=== PATIENT | female | born 1980 | race Caucasian/White ===

== ENCOUNTER 2017-04-29 11:48 | Emergency (ER) | payer MEDICAID ==
[2017-04-29 12:20] LABS: BASOPHILS % (AUTO) 0.2 %; EOSINOPHILS # (AUTO) 0.3 10^3/uL (0.0-0.7); EOSINOPHILS % (AUTO) 3.8 %; HGB - HEMOGLOBIN 13.6 g/dL (12.0-16.0); LYMPHOCYTES # (AUTO) 0.4 10^3/uL (1.5-3.5); LYMPHOCYTES % (AUTO) 5.1 %; MEAN CORPUSCULAR HEMOGLOBIN 28.7 pg (27.0-31.0); MEAN CORPUSCULAR HGB CONC 33.9 g/dL (32.0-36.0); MEAN CORPUSCULAR VOLUME 84.5 fL (81.0-99.0); MEAN PLATELET VOLUME 8.1 fL (7.9-10.8); MONOCYTES # (AUTO) 0.8 10^3/uL (0.0-1.0); MONOCYTES % (AUTO) 9.7 %; NEUTROPHILS # (AUTO) 6.9 10^3/uL (1.5-6.6); NEUTROPHILS % (AUTO) 81.2 %; PLT - PLATELET COUNT 206 10^3/uL (130-450); RED BLOOD COUNT 4.73 10^6/uL (4.20-5.40); RED CELL DISTRIBUTION WIDTH 14.3 % (12.0-15.0); WHITE BLOOD COUNT 8.6 x10^3/uL (4.8-10.8)
--- NOTE | 2017-04-29 12:33 | ED Physician Documentation ---
PD HPI FOCAL NEURO - Stated complaint Stated Complaint: SYNCOPE - Chief complaint Chief Complaint: Neuro - History obtained from History obtained from: Patient - History of Present Illness Timing - onset: Other (Previously healthy 36-year-old woman who has had irregular and heavy menses lately and had a recent stress fracture of a left- sided metatarsal who is in a boot now. 3 days ago, on she had an episode lasting about 5 minutes where she got in the shower and then she got very dizzy and had stomach cramps and nearly passed out. She laid down and after a few minutes felt better. Yesterday and the day before she felt fine. Today she went to work and she started to get stomach cramps and a left flank pain radiating to the left upper quadrant/chest. This was associated with tunnel vision and near syncope and diarrhea. She feels not completely better now with residual stomach cramps and nausea and slight dizziness but mostly better. She declines any medications for her symptoms. This is never happened before. She says there is no possibility of .) Review of Systems Ten Systems: 10 systems reviewed and negative Constitutional: denies: Fever, Chills Ears: denies: Ear pain Nose: denies: Rhinorrhea / runny nose, Congestion Throat: denies: Sore throat Cardiac: reports: Chest pain / pressure (For 1 month when working out). denies : Palpitations Respiratory: denies: Dyspnea, Cough GI: reports: Abdominal Pain, Nausea, Diarrhea. denies: Vomiting PD PAST MEDICAL HISTORY - Past Medical History Past Medical History: Yes Neuro: Headache/migraine Endocrine/Autoimmune: HyPOthyroidism Psych: Anxiety, Panic attacks - Past Surgical History Past Surgical History: Yes General: Cholecystectomy - Allergies Allergies/Adverse Reactions: Allergies Allergy/AdvReac Type Severity Reaction Status Date / Time No Known Drug Allergies Allergy Verified 04/29/17 12:11 - Social History Does the pt smoke?: Yes Smoking Status: Current every day smoker Does the pt drink ETOH?: No Does the pt have substance abuse?: No - Immunizations Immunizations are current?: Yes - POLST Patient has POLST: No PD ED PE NORMAL - Vitals Vital signs reviewed: Yes - General General: Alert and oriented X 3, No acute distress - HEENT HEENT: PERRL, EOMI - Neck Neck: Supple, no meningeal sign, No bony TTP - Cardiac Cardiac: RRR, No murmur - Respiratory Respiratory: No respiratory distress, Clear bilaterally - Abdomen Abdomen: Normal bowel sounds, Soft, Non tender - Back Back: No CVA TTP, No spinal TTP - Derm Derm: Normal color, Warm and dry - Extremities Extremities: Other (Left leg in a short leg boot without calf tenderness or swelling.) - Neuro Neuro: Alert and oriented X 3, Normal speech Eye Opening: Spontaneous Motor: Obeys Commands Verbal: Oriented GCS Score: 15 - Psych Psych: Normal mood, Normal affect Results - Vitals Vitals: Vital Signs - 24 hr 04/29/17 04/29/17 04/29/17 11:50 12:12 15:29 Temperature 36.4 C L Heart Rate 74 67 Heart Rate [ 85 Sitting] Heart Rate [ 74 Standing] Heart Rate [ 64 Supine] Respiratory 20 20 Rate Blood Pressure 121/71 130/68 Blood Pressure 133/82 H [Sitting] Blood Pressure 132/82 H [Standing] Blood Pressure 103/38 L [Supine] O2 Saturation 97 100 Oxygen O2 Source Room air - EKG (time done) 1156 Rate: Rate (enter#) (73) Rhythm: NSR [place]: Normal Intervals: Normal [place] QRS: Normal Ischemia: Normal ST segments Computer interpretation: Agree with computer - Labs Labs: Laboratory Tests 04/29/17 04/29/17 04/29/17 12:06 12:06 12:06 WBC 8.6 RBC 4.73 Hgb 13.6 Hct 40.0 MCV 84.5 MCH 28.7 MCHC 33.9 RDW 14.3 Plt Count 206 MPV 8.1 Neut # 6.9 H Lymph # 0.4 L [place] # 0.8 Eos # 0.3 Baso # 0.0 Absolute Nucleated RBC 0.00 Nucleated RBC % 0.0 D-Dimer 342.5 H Sodium 139 Potassium 4.0 Chloride 104 Carbon Dioxide 26 Anion Gap 9.0 BUN 18 Creatinine 0.7 Estimated GFR (MDRD) 94 Glucose 99 Calcium 8.7 Total Bilirubin 0.7 AST 40 ALT 41 Alkaline Phosphatase 46 Total Protein 6.3 L Albumin 3.8 Globulin 2.5 Albumin/Globulin Ratio 1.5 Lipase 15 L Urine Color Urine Clarity Urine pH Ur Specific [place] Urine Protein Urine Glucose (UA) Urine Ketones Urine Occult Blood Urine Nitrite Urine Bilirubin Urine Urobilinogen Ur Leukocyte Esterase Ur Microscopic Review Urine Culture Comments Urine HCG, Qual 02/25/18 13:49 WBC RBC Hgb Hct MCV MCH MCHC RDW Plt Count MPV Neut # Lymph # [place] # Eos # Baso # Absolute Nucleated RBC Nucleated RBC % D-Dimer Sodium Potassium Chloride Carbon Dioxide Anion Gap BUN Creatinine Estimated GFR (MDRD) Glucose Calcium Total Bilirubin AST ALT Alkaline Phosphatase Total Protein Albumin Globulin Albumin/Globulin Ratio Lipase Urine Color YELLOW Urine Clarity CLEAR Urine pH 7.5 Ur Specific [place] 1.015 Urine Protein NEGATIVE Urine Glucose (UA) NEGATIVE Urine Ketones NEGATIVE Urine Occult Blood NEGATIVE Urine Nitrite NEGATIVE Urine Bilirubin NEGATIVE Urine Urobilinogen 0.2 (NORMAL) Ur Leukocyte Esterase NEGATIVE Ur Microscopic Review NOT INDICATED Urine Culture Comments NOT INDICATED Urine HCG, Qual NEGATIVE - Rads (name of study) CT PA Radiology: EMP read contemporaneously (no pe, normal) PD MEDICAL DECISION MAKING - ED course ED course: 36-year-old woman with 2 episodes of near syncope, diarrhea, and sweats. Mostly resolved on here. With recent diagnosis of metatarsal fracture in a boot concern for PE, and d-dimer was borderline positive followed by CT PA which was negative. Otherwise her workup was benign. Departure - Departure Disposition: Home, Self Care Clinical Impression: Syncope Qualifiers: Syncope type: vasovagal syncope Qualified Code(s): R55 - Syncope and collapse Condition: Good Record reviewed to determine appropriate education?: Yes Instructions: ED Fainting Unkn Cause Comments: Drink plenty of fluids and rest today. If you develop further episodes please return for reevaluation. If you have mild ongoing episodes talk with your doctor about a Holter monitor or other diagnostics.
[2017-04-29 12:43] LABS: ALBUMIN 3.8 g/dL (3.2-5.5); ALBUMIN/GLOBULIN RATIO 1.5 (1.0-2.2); BILIRUBIN,TOTAL 0.7 mg/dL (0.2-1.0); CALCIUM 8.7 mg/dL (8.5-10.3); CREATININE 0.7 mg/dL (0.4-1.0); TOTAL PROTEIN 6.3 g/dL (6.7-8.2)
[2017-04-29 14:05] LABS: BILIRUBIN,URINE NEGATIVE (NEGATIVE); GLUCOSE, URINE (UA) NEGATIVE (NEGATIVE); KETONES,URINE (UA) NEGATIVE (NEGATIVE); LEUKOCYTE ESTERASE, URINE NEGATIVE (NEGATIVE); NITRITE,URINE NEGATIVE (NEGATIVE); OCCULT BLOOD,URINE NEGATIVE (NEGATIVE); PH,URINE 7.5 PH (5.0-7.5); PROTEIN,URINE NEGATIVE (NEGATIVE); UROBILINOGEN,URINE 0.2 (NORMAL) E.U./dL (NORMAL)
[2017-04-29 14:11] LABS: CLARITY,URINE CLEAR (CLEAR)
[2017-04-29] MEDS ORDERED: IOPAMIDOL-300 100 ML VIAL ONE ×2 (14:27→15:20)
[2017-04-29 14:57] LABS: HCG UR QUAL NEGATIVE
[2017-04-29] MEDS ORDERED: ACETAMINOPHEN 325 MG TABLET PO STA (16:01)
--- NOTE | 2017-04-29 16:35 | CT Report ---
EXAM: CT ANGIOGRAM CHEST EXAM DATE: 04/29/2017 04:24 PM. CLINICAL HISTORY: Syncope. Foot fracture. Nausea. Feel like going to pass out. Diarrhea. COMPARISON: None. TECHNIQUE: Routine helical imaging was performed through the chest in the pulmonary arterial phase. I V Contrast: 80 cc of Isovue-300. Reconstructions: Coronal 3-D MIP reconstructions.Sagittal and collins l. In accordance with CT protocol optimization, one or more of the following dose reduction techniques w ere utilized for this exam: automated exposure control, adjustment of mA and/or KV based on patient s ize, or use of iterative reconstructive technique. FINDINGS: Pulmonary Arteries: Diagnostic quality: Adequate through the segmental arteries. No evidence of acute or chronic emboli. Some peripheral vessels specifically subsegmental vessels are somewhat limited in detail due to motio n. Mid main pulmonary artery measures 2.6 cm. Lungs/Pleura: No endobronchial obstruction. No consolidation or pneumothorax. No vascular congestion. No pleural effusions. Mediastinum: Heart size is normal. Trace pericardial effusion. No mediastinal hematoma. Visualized th yroid gland is unremarkable. No enlarged mediastinal or hilar lymph nodes. Thoracic Aorta: Normal in caliber. Limited opacification of the lumen of the thoracic aorta. Upper Abdomen: Included portions of the liver, spleen, adrenals, pancreas, kidneys and upper abdomina l bowel and stomach are unremarkable. Status post cholecystectomy. Other: Degenerative changes of the thoracic spine. No acute osseous abnormalities. IMPRESSION: 1. No evidence of pulmonary embolus. 2. Clear lungs. No acute consolidation. 3. No acute osseous abnormalities. 4. Status post cholecystectomy. [facility] Referring Provider Line: [phone] SITE ID: [id number]
[2017-04-29 16:56] VITALS: BP 132/78
[2017-04-29] MEDS ORDERED: IOPAMIDOL-300 100 ML VIAL IVP ONE (19:37)
== END 2017-04-29 16:54 | disposition home or self-care (01) ==
LOC: ED 11:48
DX: R55 Syncope and collapse (principal); E03.9 Hypothyroidism, unspecified; F17.200 Nicotine dependence, unspecified, uncomplicated
CPT/HCPCS: 36415; 71275; 80053; 81003; 81025; 83690; 85025; 85379; 93005; 99284; A9270; Q9967; 81001; 87086

== ENCOUNTER 2020-01-27 08:00 | Outpatient (CLI) | payer MEDICAID ==
[2020-01-27 18:09] LABS: BASOPHILS % (AUTO) 0.6 %; EOSINOPHILS # (AUTO) 0.3 10^3/uL (0.0-0.7); EOSINOPHILS % (AUTO) 4.7 %; HGB - HEMOGLOBIN 13.8 g/dL (12.0-16.0); LYMPHOCYTES # (AUTO) 1.9 10^3/uL (1.5-3.5); LYMPHOCYTES % (AUTO) 29.5 %; MEAN CORPUSCULAR HEMOGLOBIN 27.9 pg (27.0-31.0); MEAN CORPUSCULAR HGB CONC 31.5 g/dL (32.0-36.0); MEAN CORPUSCULAR VOLUME 88.7 fL (81.0-99.0); MEAN PLATELET VOLUME 9.9 fL (7.9-10.8); MONOCYTES # (AUTO) 0.6 10^3/uL (0.0-1.0); MONOCYTES % (AUTO) 9.1 %; NEUTROPHILS # (AUTO) 3.6 10^3/uL (1.5-6.6); NEUTROPHILS % (AUTO) 55.9 %; PLT - PLATELET COUNT 279 10^3/uL (130-450); RED BLOOD COUNT 4.94 10^6/uL (4.20-5.40); RED CELL DISTRIBUTION WIDTH 13.5 % (12.0-15.0); WHITE BLOOD COUNT 6.5 x10^3/uL (4.8-10.8)
[2020-01-27 19:36] LABS: ALBUMIN 4.2 g/dL (3.2-5.5); ALBUMIN/GLOBULIN RATIO 1.4 (1.0-2.2); ALKALINE PHOSPHATASE 49 IU/L (42-121); ALT ALANINE AMINOTRANSFERASE 23 IU/L (10-60); AST ASPARTATE AMINOTRANSFERASE 21 IU/L (10-42); BILIRUBIN,TOTAL 0.7 mg/dL (0.2-1.0); BUN - BLOOD UREA NITROGEN 15 mg/dL (6-20); CALCIUM 9.4 mg/dL (8.5-10.3); CARBON DIOXIDE - CO2 27 mmol/L (21-32); CHLORIDE 103 mmol/L (101-111); CHOL/HDL RATIO 4.3 (<4.4); CHOLESTEROL 221 mg/dL; CREATININE 0.8 mg/dL (0.4-1.0); GLUCOSE 84 mg/dL (70-100); HDL CHOLESTEROL 52 mg/dL; LDL CHOLESTEROL,CALCULATED 146 mg/dL; LDL/HDL RATIO 2.8 (<4.4); SODIUM 139 mmol/L (135-145); TOTAL PROTEIN 7.2 g/dL (6.7-8.2); VLDL CHOLESTEROL 23 mg/dL
== END 2020-01-27 23:59 | disposition home or self-care (01) ==
LOC: LAB.WCP 08:00
PROVIDERS: ATTEND Nurse Practitioner
DX: E28.2 Polycystic ovarian syndrome (principal); Z13.220 Encounter for screening for lipoid disorders; Z13.228 Encounter for screening for other metabolic disorders; F41.0 Panic disorder [episodic paroxysmal anxiety]
CPT/HCPCS: 36415; 80053; 80061; 83721; 84443; 85025

== ENCOUNTER 2020-06-11 | Emergency (ER) | payer MEDICAID ==
--- OUTSIDE RECORDS SUMMARY | 2020-06-11 16:35 | EXTERNAL MEDICAL SUMMARY RPT | Continuity of Care Document ---
:1980 Demographics Phone Unavailable Preferred Language Unknown Marital Status Unknown Bahai Affiliation Unknown Race Unknown Ethnic Group Unknown Author Organization [facility] Address [address] [place] [address] Phone Social History date description facility [id number]
--- NOTE | 2020-06-11 17:15 | ED Physician Documentation ---
History of Present Illness - Stated complaint Stated Complaint: LT LEG PX - Chief complaint Chief Complaint: Ext Problem - History obtained from History obtained from: Patient - History of Present Illness Timing: Today Pain level max: 4 Pain level now: 3 - Additonal information Additional information: 40-year-old female presents to the emergency department complaining of left calf cramping and left foot cramping. This been ongoing for the past several days. She states her left leg is more swollen than usual as well. No skin changes. No redness. No fevers. No chills. No trauma. Nothing makes it better, worse with walking Denies any trauma. Review of Systems Ten Systems: 10 systems reviewed and negative Constitutional: denies: Fever, Chills Cardiac: denies: Chest pain / pressure, Palpitations Respiratory: denies: Dyspnea, Cough : denies: Now EGA Skin: denies: Rash Musculoskeletal: denies: Neck pain, Back pain Neurologic: denies: Focal weakness, Numbness, Headache PD PAST MEDICAL HISTORY - Past Medical History Past Medical History: Yes Endocrine/Autoimmune: HyPOthyroidism Psych: Anxiety, Panic attacks - Past Surgical History Past Surgical History: Yes General: Cholecystectomy - Present Medications Home Medications: Ambulatory Orders Medication Instructions Recorded Confirmed Sertraline [Zoloft] 1 tab PO DAILY 06/11/20 06/11/20 hydrOXYzine HCL [Hydroxyzine HCl] 100 mg PO HS 06/11/20 06/11/20 - Allergies Allergies/Adverse Reactions: Allergies Allergy/AdvReac Type Severity Reaction Status Date / Time No Known Drug Allergies Allergy Verified 06/11/20 16:24 - Social History Does the pt smoke?: Yes Smoking Status: Current every day smoker Does the pt drink ETOH?: No Does the pt have substance abuse?: No - Immunizations Immunizations are current?: Yes - POLST Patient has POLST: No PD ED PE NORMAL - Vitals Vital signs reviewed: Yes - General General: Alert and oriented X 3, No acute distress, Well developed/nourished - HEENT HEENT: Moist mucous membranes - Neck Neck: Supple, no meningeal sign - Cardiac Cardiac: RRR - Respiratory Respiratory: No respiratory distress, Clear bilaterally - Derm Derm: Warm and dry - Extremities Extremities: Other (Tender to palpation of bruised the posterior aspect of the left calf. No palpable cord. Mild increased swelling Left greater than right. No skin changes. 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 The patient was signed out AGAINST MEDICAL ADVICE. She was informed that she is welcome to return anytime should she change her mind. Counseled regarding risks including DVT, PE, stroke. Patient is alert, oriented x3. Does not appear intoxicated. Her j udgment does not appear impaired at this time. This document was made in part using voice recognition software. While efforts are made to proofread this document, sound alike and grammatical errors may occur. Departure - Departure Disposition: 07 Against Medical Advice Clinical Impression: Pain of lower extremity Qualifiers: Laterality: left Qualified Code(s): M79.605 - Pain in left leg Condition: Stable Discharge Date/Time: 06/11/20 17:16
== END 2020-06-11 17:16 | disposition left against medical advice (07) ==
CPT/HCPCS: 99281; 99282